=== PATIENT | male | born 1995 | race American Indian/Alaskan Native ===

== ENCOUNTER → 2019-01-14 | Outpatient (CLI) | payer OTHER ==
--- NOTE | 2019-02-27 14:32 | EXF ---
[facility] [place] [address] EXERCISE FUNCTION Name: BLAISE SERRANO Room #: REG [facility] Anastasiya#: [id number] Admission: 01/14/19 Attend Phys: Gibran Curry MD Discharge: Date of : 89 Report #: [id number] THIS REPORT FOR: //name// COPIES FOR: AGE: 23 SEX/RACE: M/N Height: 67 in Exam Date: 11/28/18 Weight: 170 lbs BTPS: X >> PRE EXERCISE: PREDICTED BEST %PRED FORCED VITAL CAPACITY (FRC) 5.05 L LPM % FORCED EXP VOL/SEC (FEV1) 4.10 L FEV/FVC % MAX MID-EXP FLOW (FEF 25-75) 4.54 L/SEC L/SEC % PEAK EXP FLOW RATE (FEF MAX) 9.36 L/MIN L/MIN MED-VC RATIO (FEF 50/FEF 50) .09 Zero Minutes: 10 Minutes: BEST %PRED %PRE EX BEST %PRED %PRE EX FVC 4.44 L 88 % % FVC 4.58 L 91 % 3 % FEV1 4.09 L 100 % % FEV1 4.16 L 101 % 2 % 20 Minutes: 30 Minutes: BEST %PRED %PRE EX BEST %PRED %PRE EX FVC 4.51 L 89 % 2 % FVC L % % FEV1 4.08 L 99 % -0 % FEV1 L % % . 40 Minutes: Post Bronchodilator: BEST %PRED %PRE EX BEST %PRED %PRE EX FVC L % % FVC 4.42 L 88 % -0 % FEV1 L % % FEV1 4.10 L 100 % 0 % PRED MAX HR 85% PRED HR HR RESTING HR EXERCISE <ELECTRONICALLY SIGNED> By: D: Frankie Matt MD /CD
== END ==
LOC: PUL 13:52
DX: J45.909 Unspecified asthma, uncomplicated (principal)